=== PATIENT | male | born 1955 | race Caucasian/White ===

== ENCOUNTER → 2017-06-06 | Outpatient (CLI) | payer SELFPAY, OTHER | END | disposition home or self-care (01) | LOC: PCVCIMAG 14:55 | DX: I08.1 Rheumatic disorders of both mitral and tricuspid valves (principal); I42.9 Cardiomyopathy, unspecified; R94.31 Abnormal electrocardiogram [ECG] [EKG] | CPT/HCPCS: 93308 ==

== ENCOUNTER → 2018-03-12 | Outpatient (CLI) | payer OTHER ==
[~2018-03-12] MED LIST: DIAZEPAM 10 MG TABLET. ONE; EPTIFIBATIDE BOLUS 2,000 MCG/ML 10ML VIAL. IV ONE; HEPARIN 1,000 UNIT/ML VIAL for PCVC ONE; HEPARIN for SUB-Q USE 5,000 UNIT/ML VIAL. SQ ONE; HYDROcodone/APAP 5/325MG 1 TAB TABLET ONE; IODIXANOL 270 MG/ML 100 ML VIAL. ONE; IV NORMAL SALINE 1000ML BAG 1,000 ML ONE; LIDOCAINE 1%/EPI 1:100,000 20 ML VIAL. ONE; MIDAZOLAM HCL/PF 2 MG/2 ML VIAL. ONE; fentaNYL PF VIAL 100 MCG/2 ML VIAL ONE; hydrALAZINE 20 MG/ML VIAL. ONE
--- NOTE | 2018-03-12 17:53 | PCVCINTER ---
EXAM: 1. RIGHT LOWER EXTREMITY RUNOFF ANGIOGRAM 2. BILATERAL RENAL ANGIOGRAPHY 3. RIGHT UPPER RENAL ARTERY STENT PLACEMENT. 4. RIGHT LOWER RENAL ARTERY STENT PLACEMENT. 5. LEFT RENAL ARTERY STENT PLACEMENT. INDICATION: Peripheral arterial disease. Renovascular hypertension. Progressive renal insufficiency. Nonhealing ulcer right lower extremity. Hypertension. Renal atherosclerosis. No prior catheter based angiographic study is available. A full diagnostic angiogram study is performed today and the decision to intervene is based on this diagnostic study. PROCEDURE: Procedure and risks of angiography intervention is appropriate including limb loss stroke and were discussed with the patient's family and consent obtained. The patient's left groin was prepped in the normal sterile fashion. IV conscious sedation was used throughout procedure with appropriate monitoring from 12:30 PM through 2:00 PM. Ultrasound was used to interrogate the left groin and showed the left common femoral artery to be patent. A permanent spot film was obtained. Under ultrasound guidance access into the left common femoral artery was obtained and a 5 Danish sheath was placed. Through this a 5 Danish visceral catheter was placed into the right renal arteries and right renal angiograms obtained. Catheter was placed into the the left renal arteries and left renal angiograms were obtained. Catheter was advanced to the level of the right external iliac artery and right leg runoff angiography was obtained. Patient was given 4500 units of heparin. Stent placement across the areas of high-grade stenosis in the right upper renal artery was carried out with a 4 x 15 and 5 x 15 Palmaz blue stent with subsequent dilatation to 5.0 mm. Stent placement across the areas of high-grade stenosis in the right lower renal artery was carried out with a 6 x 15 Palmaz blue stent with subsequent dilatation to 6.0 mm. Stent placement across the areas of high-grade stenosis in the left renal artery was carried out with a 6 x 18 Palmaz blue stent with subsequent dilatation to 6.0 mm. Follow-up angiogram was performed. Catheters and wires removed. Sheath was removed and hemostasis obtained using the FISH device. No immediate complications. FINDINGS: Right renal artery: There are 2 right renal arteries both of which are similar in size in both which have 95% stenoses at their origins. Following stent placement in these vessels good patency to both arteries has been restored. Left renal artery: There is one left renal artery which shows 90% stenosis at its origin. Following stent placement is good position of the stent graft with satisfactory patency restored. Right leg: Right common and external iliac arteries show scattered plaque without flow-limiting stenosis. Moderate stenosis origin of the internal iliac artery. The common femoral and profunda femoral arteries show adequate patency. Scattered plaque throughout the superficial femoral artery without flow-limiting stenosis. Areas of prior intervention mid and distal superficial femoral artery and upper popliteal artery show only mild residual stenosis not felt be flow-limiting. Mid and distal popliteal artery shows good patency. There is occlusion throughout the anterior and posterior tibial arteries. The tibioperoneal trunk shows minimal stenosis not felt be flow-limiting. The peroneal artery isn't adequately size runoff vessel remains patent to the level of the distal tibia were provides tiny collaterals into the foot to refill a small plantar artery. The dorsalis pedis is diminutive in size. IMPRESSION: Critical grade stenoses involving 2 right renal arteries and the left renal artery all of which were treated with stent placement with good patency restored. Severe infrapopliteal arterial occlusive disease as reviewed above with highly diseased pedal vessels. I'll follow-up with the patient in 1 month regarding his progress at which time aortoiliac and bilateral leg duplex will be obtained with specific attention to previous sites of intervention/DCB in the right SFA and popliteal artery. LOC:[id number]
== END | disposition home or self-care (01) ==
LOC: PCVCINTER 12:00
PROVIDERS: ATTEND Nuclear Medicine Nuclear Cardiology
DX: I70.238 Atherosclerosis of native arteries of right leg with ulceration of other part of lower leg (principal); I70.1 Atherosclerosis of renal artery; L97.818 Non-pressure chronic ulcer of other part of right lower leg with other specified severity; I10 Essential (primary) hypertension; I15.0 Renovascular hypertension; N17.9 Acute kidney failure, unspecified; Z87.01 Personal history of pneumonia (recurrent); I42.9 Cardiomyopathy, unspecified; E11.9 Type 2 diabetes mellitus without complications; E78.5 Hyperlipidemia, unspecified; J96.91 Respiratory failure, unspecified with hypoxia; Z90.81 Acquired absence of spleen; Z88.8 Allergy status to other drugs, medicaments and biological substances; Z79.899 Other long term (current) drug therapy; Z79.82 Long term (current) use of aspirin; Z79.2 Long term (current) use of antibiotics; Z79.84 Long term (current) use of oral hypoglycemic drugs
CPT/HCPCS: 36246; 36252; 37236; 37237; 75710; 76937; 99152; 99153; C1725; C1751; C1760; C1769; C1876; C1887; C1894; J0360; J0690; J1327; J1644; J2250; J3010; J3490; J7030; Q9967

== ENCOUNTER → 2018-05-14 | Outpatient (CLI) | payer OTHER ==
--- NOTE | 2018-05-14 15:29 | PCVCIMAG ---
APPROVED REPORT Laterality: Bilateral Indications Stenosis Doppler Spectral Velocity Analysis PSV / EDVPSV / EDV ECA (R) 153 / 0 cm/sECA (L) 170 / 0 cm/s dICA (R) 59 / 21 cm/sdICA (L) 58 / 22 cm/s Herlinda (R) 103 / 36 cm/smICA (L) 66 / 19 cm/s pICA (R) 57 / 18 cm/spICA (L) 74 / 14 cm/s Bulb (R) 39 / 10 cm/sBulb (L) 87 / 13 cm/s dCCA (R) 69 / 9 cm/sdCCA (L) 96 / 13 cm/s mCCA (R) 73 / 12 cm/smCCA (L) 100 / 17 cm/s Vert (R) 52 / 0 cm/sVert (L) 68 / 24 cm/s ICA/CCA 1.49 ICA/CCA 0.77 Findings The right carotid bulb has moderate calcified plaque. The right proximal internal carotid artery shows <40% stenosis. The right common carotid artery shows no significant stenosis. The right external carotid artery shows no significant stenosis. The left carotid bulb has minimal plaque. The left proximal internal carotid artery shows no significant stenosis. The left common carotid artery shows no significant stenosis. The left external carotid artery shows no significant stenosis. Conclusion 1. Right internal carotid artery stenosis (<40%) 2. Left internal carotid artey plaquing without significant stenosis 3. Antegrade vertebral flow
--- NOTE | 2018-05-14 18:00 | PCVCIMAG ---
EXAM: AORTOILIAC DUPLEX INDICATION: Peripheral arterial disease FINDINGS: AORTA: Suprarenal aorta measures maximum diameter of 2.1 cm. There is not a fusiform infrarenal aortic aneurysm. The infrarenal aorta measures maximum diameter of 1.8 cm. 50% stenosis with friable plaque distal aorta. RIGHT COMMON ILIAC ARTERY: Maximum diameter is 1.1 cm. No significant stenosis. RIGHT EXTERNAL ILIAC ARTERY: No significant stenosis. LEFT COMMON ILIAC ARTERY: Maximum diameter is 1.1 cm. No significant stenosis. LEFT EXTERNAL ILIAC ARTERY: No significant stenosis. IMPRESSION: No abdominal aortic aneurysm. 50% stenosis distal infrarenal abdominal aorta. No flow limiting iliac stenosis seen. LOC:[id number]
== END | disposition home or self-care (01) ==
LOC: PCVCIMAG 12:34
PROVIDERS: ATTEND Nuclear Medicine Nuclear Cardiology
DX: I65.23 Occlusion and stenosis of bilateral carotid arteries (principal); I73.9 Peripheral vascular disease, unspecified; I77.1 Stricture of artery; R09.89 Other specified symptoms and signs involving the circulatory and respiratory systems; E78.00 Pure hypercholesterolemia, unspecified; I12.9 Hypertensive chronic kidney disease with stage 1 through stage 4 chronic kidney disease, or unspecified chronic kidney disease; N18.9 Chronic kidney disease, unspecified
CPT/HCPCS: 93880; 93925; 93978

== ENCOUNTER → 2018-09-16 | Outpatient (CLI) | payer OTHER ==
--- NOTE | 2018-09-16 14:40 | PCVCIMAG ---
APPROVED REPORT Study performed: 09/16/2018 12:31:26 EXAM: Comprehensive 2D, Doppler, and color-flow Echocardiogram Patient Location: Echo lab Status: routine BSA: 1.72 HR: 86 bpmBP: 140/60 mmHg Rhythm: NSR Other Information Study Quality: Adequate Risk Factors: Cardiac Risk Factors: HTN Indications Diabetes CAD Cardiomyopathy 2D Dimensions IVSd: 12.12 (7-11mm) LVDd: 43.32 mm PWd: 11.57 (7-11mm)Ascending Ao: 32.61 (22-36mm) LVDs: 33.92 (25-40mm) Left Atrium: 43.24 (27-40mm) Aortic Root: 30.03 mm LV Single Plane 4CH: 45.73 % LV Single Plane 2CH: 46.88 % Biplane EF: 46.0 % Volumes Left Atrial Volume (Systole) Single Plane 4CH: 83.80 mLSingle Plane 2CH: 93.83 mL LA ESV Index: 55.00 mL/m2 Aortic Valve AoV Peak Roverto.: 1.37 m/s AO Peak Gr.: 7.47 mmHgLVOT Max P.18 mmHg LVOT Max V: 1.02 m/s Mitral Valve E/A Ratio: 2.0 MV Decel. Time: 192.06 ms MV E Max Roverto.: 1.27 m/s MV A Roverto.: 0.65 m/s IVRT: 86.51 ms Pulmonary Valve PV Peak Roverto.: 1.05 m/sPV Peak Gr.: 4.37 mmHg Pulmonary Vein P Vein S: 0.72 m/sP Vein A: 0.48 m/s P Vein D: 1.05 m/sP Vein A Dur.: 155.7 msec P Vein S/D Ratio: 0.69 Tricuspid Valve TR Peak Roverto.: 3.76 m/s TR Peak Gr.: 56.47 mmHg Left Ventricle The left ventricle is normal size. There is normal LV segmental wall motion. Mild concentric left ventricular hypertrophy. Left ventricular systolic function is mildly decreased. LVEF is 45-50%. Grade II - pseudonormal filling dynamics. Right Ventricle The right ventricle is normal size. The right ventricular systolic function is normal. Atria Left atrium is moderate-severely dilated. Right atrium is mildly dilated. Aortic Valve The aortic valve is normal in structure. No aortic regurgitation is present. There is no aortic valvular stenosis. Mitral Valve The mitral valve is normal in structure. Mild anterior mitral valve prolapse. Moderate mitral regurgitation. No evidence of mitral valve stenosis. Tricuspid Valve The tricuspid valve is normal in structure. Moderate tricuspid regurgitation with PAP of 66 mmHg. Pulmonic Valve The pulmonary valve is normal in structure. Mild pulmonic regurgitation. Great Vessels The aortic root is normal in size. IVC is normal in size and collapses >50% with inspiration. Pericardium There is no pericardial effusion. There is no pleural effusion. <Conclusion> The left ventricle is normal size. Mild concentric left ventricular hypertrophy. Left ventricular systolic function is mildly decreased. LVEF is 45-50%. Grade II - pseudonormal filling dynamics. The right ventricle is normal size. Left atrium is moderate-severely dilated. Right atrium is mildly dilated. The aortic valve is normal in structure. The mitral valve is normal in structure. Mild anterior mitral valve prolapse. Moderate mitral regurgitation. Moderate tricuspid regurgitation with PAP of 66 mmHg. The aortic root is normal in size. There is no pericardial effusion.
== END | disposition home or self-care (01) ==
LOC: PCVCIMAG 12:45
PROVIDERS: ATTEND Nuclear Medicine Nuclear Cardiology
DX: I08.1 Rheumatic disorders of both mitral and tricuspid valves (principal); I25.10 Atherosclerotic heart disease of native coronary artery without angina pectoris; E11.9 Type 2 diabetes mellitus without complications; I42.9 Cardiomyopathy, unspecified; I10 Essential (primary) hypertension; I73.9 Peripheral vascular disease, unspecified
CPT/HCPCS: 93306

== ENCOUNTER → 2018-11-04 | Outpatient (CLI) | payer OTHER ==
--- NOTE | 2018-11-04 12:08 | PCVCIMAG ---
EXAM: BILATERAL RENAL ULTRASOUND AND BILATERAL RENAL DUPLEX INDICATION: Hypertension FINDINGS: Right kidney: Length measures 11.7 cm. No hydronephrosis or extensive renal scarring. Right renal duplex: Adequate technical quality. No sonographic evidence of renal artery stenosis. The aortic to renal artery ratio is 1.5. The renal vein is patent. Left kidney: Length measures 11.6 cm. No hydronephrosis or extensive renal scarring. Left renal duplex: Adequate technical quality. No sonographic evidence of renal artery stenosis. The aortic to renal artery ratio is 1.3. The renal vein is patent. Bladder: No obvious abnormalities. IMPRESSION: No significant renal artery stenosis. No hydronephrosis bilaterally. LOC:[id number]
--- NOTE | 2018-11-04 12:19 | PCVCIMAG ---
EXAM: BILATERAL LOWER EXTREMITY ARTERIAL DUPLEX INDICATION: Peripheral Arterial Disease. Leg pain. FINDINGS: Right Leg: Common femoral and profunda femoral arteries are patent. Superficial femoral artery and popliteal artery are patent. There is occlusion of the distal anterior tibial/dorsalis pedis, tibioperoneal trunk, and mid and upper posterior tibial artery. Post surgical changes of popliteal-posterior tibial artery bypass remains patent. Left Leg: Common femoral and profunda femoral arteries are patent. Superficial femoral artery and popliteal artery are patent. Occlusion throughout the anterior and posterior tibial arteries. High-grade stenosis or occlusion of the peroneal artery. IMPRESSION: Right popliteal-posterior tibial artery bypass maintaining satisfactory patency. Occlusion of the left anterior and posterior tibial arteries. High-grade stenosis or occlusion of the left peroneal artery. LOC:[id number]
== END | disposition home or self-care (01) ==
LOC: PCVCIMAG 08:45
PROVIDERS: ATTEND Nuclear Medicine Nuclear Cardiology
DX: I70.202 Unspecified atherosclerosis of native arteries of extremities, left leg (principal)
CPT/HCPCS: 76770; 93925; 93975